=== PATIENT | male | born 1975 | race Hispanic/Latino ===

== ENCOUNTER 2017-11-28 11:58 | Emergency (ER) | payer OTHER ==
[~2017-11-28] VITALS: Ht 170.2 cm; Wt 65.8 kg
--- OUTSIDE RECORDS SUMMARY | ~2017-11-28 | XMS | Clinical Summary ---
Demographics + + + | Address | [address] | | | [place] [address] | + + + | Home Phone | | + + + | Preferred Language | Unknown | + + + | Marital Status | Unknown | + + + | Alevism Affiliation | Unknown | + + + | Race | Unknown | + + + | Ethnic Group | Unknown | + + + Author + + + | Author | [facility] | + + + | Organization | [facility] | + + + | Address | Unknown | + + + | Phone | Unavailable | + + + Care Team Providers + +------+ + | Care Dispatch Officer Name | Role | Phone | + +------+ + PP | Unavailable | + +------+ + Source Comments RENE is fully live on both [facility] and [facility] InPatient.[facility] & [facility] Allergies Not on File Current Medications Not [...]
--- OUTSIDE RECORDS SUMMARY | ~2017-11-28 | XMS | Clinical Summary ---
Demographics + + + | Address | [address] | | | [place] [address] | + + + | Home Phone | | + + + | Preferred Language | Unknown | + + + | Marital Status | Unknown | + + + | Orthodoxy Affiliation | Unknown | + + + | Race | Unknown | + + + | Ethnic Group | Unknown | + + + Author + + + | Author | [facility] | + + + | Organization | [facility] | + + + | Address | Unknown | + + + | Phone | Unavailable | + + + Care Team Providers + +------+ + | Care Distribution Center Administrator Name | Role | Phone | + +------+ + PP | Unavailable | + +------+ + Source Comments RENE is fully live on both [facility] Amb[facility] and [facility] InPatient.[facility] & [facility] Allergies Not on File Current Medications Not [...]
[~2017-11-28 11:58] MED LIST: NORCO 5-325 TA1 EACH PO; PAXIL20 MG PO; TRAZODONE HCL100 MG PO
[2017-11-28] MEDS ORDERED: ROBAXIN-750750 MG PO (19:15)
[2017-11-28] MEDS ORDERED: IBUPROFEN600 MG PO (19:15)
== END 2017-11-28 19:20 | disposition home or self-care (01) ==
LOC: ED 11:58
DX: S39.012A Strain of muscle, fascia and tendon of lower back, initial encounter (principal); M54.6 Pain in thoracic spine; F17.200 Nicotine dependence, unspecified, uncomplicated; F32.9 Major depressive disorder, single episode, unspecified; Z79.899 Other long term (current) drug therapy; W18.30XA Fall on same level, unspecified, initial encounter
CPT/HCPCS: 72070; 72100; 99283

== ENCOUNTER 2017-12-14 02:23 | Emergency (ER) | payer OTHER ==
[~2017-12-14] VITALS: Ht 170.2 cm; Wt 65.8 kg
--- OUTSIDE RECORDS SUMMARY | ~2017-12-14 | XMS | Clinical Summary ---
Demographics + + + | Address | [address] | | | [place] [address] | + + + | Home Phone | | + + + | Preferred Language | Unknown | + + + | Marital Status | Unknown | + + + | Orthodox Affiliation | Unknown | + + + | Race | Unknown | + + + | Ethnic Group | Unknown | + + + Author + + + | Author | [facility] | + + + | Organization | [facility] | + + + | Address | Unknown | + + + | Phone | Unavailable | + + + Care Team Providers + +------+ + | Care Barrel Burner Name | Role | Phone | + +------+ + PP | Unavailable | + +------+ + Source Comments RENE is fully live on both [facility] and [facility] InPatient.[facility] Allergies Not on File Current Medications Not on file Active Problems Not on file Social History + +-------+ +--------+------+ | Tobacco Use | Types | Packs/Day | Years | Date | | | | | Used | | + +-------+ +--------+------+ | Never Assessed | | | | | + +-------+ +--------+------+ + + + | Sex Assigned at | Date Recorded | | | | + + + | Not on file | | + + + Plan of Treatment + + + + + | Health Maintenance | Due Date | Last Done | Comments | + + + + + | INFLUENZA VACCINE | | | | | (FLU SHOT) | 7 | | | + + + + + Results Not on filefrom Last 3 Months"
--- OUTSIDE RECORDS SUMMARY | ~2017-12-14 | XMS | Clinical Summary ---
Demographics + + + | Address | [address] | | | [place] [address] | + + + | Home Phone | | + + + | Preferred Language | Unknown | + + + | Marital Status | Unknown | + + + | Presybeterian Affiliation | Unknown | + + + | Race | Unknown | + + + | Ethnic Group | Unknown | + + + Author + + + | Author | [facility] | + + + | Organization | [facility] | + + + | Address | Unknown | + + + | Phone | Unavailable | + + + Care Team Providers + +------+ + | Care Collection Manager Name | Role | Phone | + +------+ + PP | Unavailable | + +------+ + Source Comments RENE is fully live on both [facility] and [facility] InPatient.[facility] Allergies Not on File Current Medications Not [...]
[~2017-12-14 02:23] MED LIST changes: +IBUPROFEN600 MG PO; +ROBAXIN-750750 MG PO
[2017-12-14] MEDS ORDERED: DICLOFENAC SODI75 MG PO (03:12)
[2017-12-14] MEDS ORDERED: CYCLOBENZAPRINE10 MG PO (03:12)
== END 2017-12-14 03:37 | disposition home or self-care (01) ==
LOC: ED 02:23
DX: S39.012A Strain of muscle, fascia and tendon of lower back, initial encounter (principal); F32.9 Major depressive disorder, single episode, unspecified; F17.200 Nicotine dependence, unspecified, uncomplicated; Z79.899 Other long term (current) drug therapy; X50.9XXA Other and unspecified overexertion or strenuous movements or postures, initial encounter
CPT/HCPCS: 99283

== ENCOUNTER 2018-10-06 17:37 | Emergency (ER) | payer OTHER ==
[~2018-10-06] VITALS: Ht 170.2 cm; Wt 65.8 kg
[~2018-10-06 17:37] MED LIST changes: +CYCLOBENZAPRINE10 MG PO; +DICLOFENAC SODI75 MG PO
[2018-10-06] MEDS ORDERED: PROTONIX20 MG PO (20:50)
[2018-10-06] MEDS ORDERED: ZOFRAN4 MG PO (20:50)
== END 2018-10-06 21:42 | disposition home or self-care (01) ==
LOC: ED 17:37
DX: K52.9 Noninfective gastroenteritis and colitis, unspecified (principal); K92.2 Gastrointestinal hemorrhage, unspecified; F32.9 Major depressive disorder, single episode, unspecified; F17.200 Nicotine dependence, unspecified, uncomplicated
CPT/HCPCS: 80053; 83690; 85025; 96361; 96374; 96375; 99284-25; J2270; J2405; J7030

== ENCOUNTER 2020-03-20 10:25 | Emergency (ER) | payer OTHER, BC ==
[~2020-03-20] VITALS: Ht 170.2 cm; Wt 65.8 kg
[~2020-03-20 10:25] MED LIST changes: +PROTONIX20 MG PO; +ZOFRAN4 MG PO
== END 2020-03-20 11:49 | disposition home or self-care (01) ==
LOC: ED 10:25
DX: S83.91XA Sprain of unspecified site of right knee, initial encounter (principal); S80.11XA Contusion of right lower leg, initial encounter; F32.9 Major depressive disorder, single episode, unspecified; F17.200 Nicotine dependence, unspecified, uncomplicated; W19.XXXA Unspecified fall, initial encounter
CPT/HCPCS: 73590; 99283-25

== ENCOUNTER 2020-10-14 12:44 | Emergency (ER) | payer BC ==
[~2020-10-14] VITALS: Ht 170.2 cm; Wt 59.9 kg
[2020-10-14] MEDS ORDERED: ZOFRAN4 MG PO (15:00)
--- NOTE | 2020-10-14 19:06 | EKG ---
[facility] [address] [place] [address] Signed Sinus bradycardia Minimal voltage criteria for LVH, may be normal variant Borderline ECG No previous ECGs available Confirmed by JARETH SRINIVASAN MD ([id number]) on 10/14/2020 7:06:43 PM Electronically Signed By: JARETH SRINIVASAN MD 10/14/20 1906 PATIENT NAME: OMA WETSON Electrocardiogram DATE OF : 75 PHYSICIAN: JARETH SRINIVASAN MD REPORT #: [id number] REPORT IS CONFIDENTIAL AND NOT TO BE RELEASED WITHOUT AUTHORIZATION
== END 2020-10-14 15:13 | disposition home or self-care (01) ==
LOC: ED 12:44
DX: H69.93 Unspecified Eustachian tube disorder, bilateral (principal); R11.2 Nausea with vomiting, unspecified; F17.200 Nicotine dependence, unspecified, uncomplicated
CPT/HCPCS: 80048; 83735; 85025; 93005; 93010; 96374; 96375; 99284-25; J1100; J2405; J7030

== ENCOUNTER 2021-03-17 09:26 | Emergency (ER) | payer BC ==
[~2021-03-17] VITALS: Ht 170.2 cm; Wt 58.1 kg
== END 2021-03-17 15:19 | disposition home or self-care (01) ==
LOC: ED 09:26
DX: R10.30 Lower abdominal pain, unspecified (principal); E86.0 Dehydration; F17.200 Nicotine dependence, unspecified, uncomplicated
CPT/HCPCS: 74177; 80053; 81001; 83690; 83735; 85025; 96374; 99284-25; J2405; J7030; Q9967

== ENCOUNTER 2023-05-04 09:34 | Emergency (ER) | payer BC ==
[~2023-05-04] VITALS: Ht 170.2 cm; Wt 58.1 kg
[2023-05-04] MEDS ORDERED: ONDANSETRON ODT4 MG PO (12:54)
[2023-05-04] MEDS ORDERED: PANTOPRAZOLE SO40 MG PO (12:54)
[2023-05-04] MEDS ORDERED: DICYCLOMINE HCL10 MG PO (12:54)
[2023-05-04 13:00] VITALS: BP 134/78
--- NOTE | 2023-05-04 14:28 | EKG ---
[facility] [address] [place], [place] [address] Signed Sinus bradycardia Minimal voltage criteria for LVH, may be normal variant ( Sokolow-Caban ) Borderline ECG When compared with ECG of 14-OCT-2020 13:12, No significant change was found Confirmed by RADHA SOLOMON MD ([id number]) on 05/04/2023 2:28:26 PM Electronically Signed By: RADHA SOLOMON 05/04/23 1428 PATIENT NAME: CHAN OMA ESPINAL Electrocardiogram DATE OF : 75 PHYSICIAN: RADHA SOLOMON REPORT #: [id number] REPORT IS CONFIDENTIAL AND NOT TO BE RELEASED WITHOUT AUTHORIZATION
== END 2023-05-04 13:01 | disposition home or self-care (01) ==
LOC: ED 09:34
DX: K52.9 Noninfective gastroenteritis and colitis, unspecified (principal); E86.0 Dehydration; F17.200 Nicotine dependence, unspecified, uncomplicated
CPT/HCPCS: 36415; 80053; 81003; 83690; 85025; 93005; 93010; 96374; 96375; 99284 25; C9113; J2270; J2405; J7030

== ENCOUNTER 2023-10-28 09:46 | Emergency (ER) | payer BC ==
[~2023-10-28] VITALS: Ht 170.2 cm; Wt 60.0 kg
[~2023-10-28 09:46] MED LIST changes: +DICYCLOMINE HCL10 MG PO; +ONDANSETRON ODT4 MG PO; +PANTOPRAZOLE SO40 MG PO
[2023-10-28 10:33] LABS: BASOPHILS 0.5 % (0-2); HEMATOCRIT 39.3 % (35.0-50.0); HEMOGLOBIN 13.6 g/dL (12.0-18.0); LYMPHOCYTES 20.8 % (24-44); MCH 33.5 (27-36); MCHC 34.6 g/dl (30-36); MCV 96.9 fl (81-99); MONOCYTES 6.1 % (0-12); NEUTROPHILS 71.6 % (39-80); RBC 4.06 M/ul (4.3-5.7); RDW 12.8 (10.5-15.0)
[2023-10-28 10:49] LABS: ALBUMIN 3.7 g/dL (3.4-5.0); ALBUMIN/GLOBULIN RATIO 1.16 (1.1-2.4); ALKALINE PHOSPHATASE 85 U/L (46-116); ALT (SGPT) 24 U/L (14-59); ANION GAP 12.7 (7-21); AST (SGOT) 18 U/L (15-37); BILIRUBIN, TOTAL 0.4 ng/dL (0.2-1.0); BUN/CREATININE RATIO 13.58 (6.0-28.6); CALCIUM 8.8 mg/dL (8.5-10.1); CARBON DIOXIDE 28 mmol/L (21-32); CHLORIDE 106 mmol/L (98-107); CREATININE, SERUM 0.81 mg/dL (0.70-1.30); GLOMERULAR FILTRATION RATE,EST 109 mL/min (>60); POTASSIUM 3.7 mmol/L (3.5-5.1); PROTEIN, TOTAL 6.9 g/dL (6.4-8.2); TSH, 3RD GENERATION 1.169 uIU/mL (0.358-3.740); UREA NITROGEN 11 mg/dL (7-18)
[2023-10-28 10:53] LABS: PLATELET COUNT 145 K/uL (140-440)
[2023-10-28 11:26] VITALS: BP 105/77
--- NOTE | 2023-10-29 09:15 | EKG ---
[facility] [address] [place] [address] Signed Sinus bradycardia Otherwise normal ECG When compared with ECG of 04-MAY-2023 10:54, T wave amplitude has decreased in Lateral leads Confirmed by RADHA SOLOMON MD ([id number]) on 10/29/2023 9:15:36 AM Electronically Signed By: RADHA SOLOMON 10/29/23 0915 PATIENT NAME: ROCIO ESPINALOMA Electrocardiogram DATE OF : 75 PHYSICIAN: RADHA SOLOMON REPORT #: [id number] REPORT IS CONFIDENTIAL AND NOT TO BE RELEASED WITHOUT AUTHORIZATION
== END 2023-10-28 11:26 | disposition home or self-care (01) ==
LOC: ED 09:46
PROVIDERS: Emergency Medicine
DX: R00.1 Bradycardia, unspecified (principal); F17.200 Nicotine dependence, unspecified, uncomplicated
CPT/HCPCS: 36415; 80053; 84443; 84484; 85025; 85060; 93005; 93010; 99284-25

== ENCOUNTER 2025-01-18 12:40 | Emergency (ER) | payer SELFPAY ==
[~2025-01-18] VITALS: Ht 170.2 cm; Wt 61.6 kg
[2025-01-18] MEDS ORDERED: ESCITALOPRAM OX10 MG PO (14:07)
[2025-01-18] MEDS ORDERED: MULTIVITAMINS 10 ML,FOLIC ACID 1 MG,THIAMINE HCL 100 MG in SODIUM CHLORIDE 0.9% 1,000 ML IV ONE (14:15)
[2025-01-18] MEDS ORDERED: ondansetron HCL 4 MG/2 ML VIAL IV ONE (14:15)
[2025-01-18] MEDS ORDERED: SODIUM CHLORIDE 0.9% 1,000 ML IV ONE (14:15)
[2025-01-18] MEDS ORDERED: SODIUM CHLORIDE 0.9% 1,000 ML IV PRN (14:30)
[2025-01-18] MEDS ORDERED: MULTIVITAMINS THERAPEUTIC 1 EA TAB PO ONE (14:30)
[2025-01-18] MEDS ORDERED: THIAMINE HCL 200 MG/2 ML VIAL IV ONE (14:30)
[2025-01-18] MEDS ORDERED: FOLIC ACID 1 MG/0.2 ML ML IV ONE (14:30)
[2025-01-18 14:43] LABS: ALBUMIN 4.4 g/dL (3.4-5.0); ALBUMIN/GLOBULIN RATIO 1.16 (1.1-2.4); ANION GAP 13.4 (7-21); BILIRUBIN, TOTAL 0.9 mg/dL (0.2-1.0); BUN/CREATININE RATIO 10.63 (6.0-28.6); CALCIUM 9.2 mg/dL (8.5-10.1); CREATININE, SERUM 0.94 mg/dL (0.70-1.30); POTASSIUM 3.4 mmol/L (3.5-5.1); PROTEIN, TOTAL 8.2 g/dL (6.4-8.2)
[2025-01-18 15:09] LABS: BASOPHILS 0.3 % (0-2); EOSINOPHILS 0.1 % (0-6); HEMATOCRIT 43.2 % (35.0-50.0); HEMOGLOBIN 15.1 g/dL (12.0-18.0); LYMPHOCYTES 8.4 % (24-44); MCH 32.9 (27-36); MCHC 34.9 g/dl (30-36); MCV 94.5 fl (81-99); NEUTROPHILS 85.2 % (39-80); PLATELET COUNT 146 K/uL (140-440); RBC 4.58 M/ul (4.3-5.7); RDW 13.2 (10.5-15.0)
[2025-01-18 15:24] LABS: CORONAVIRUS COVID-19 AG NEGATIVE (NEGATIVE); INFLUENZA A AG NEGATIVE (NEGATIVE); INFLUENZA B AG NEGATIVE (NEGATIVE)
[2025-01-18] MEDS ORDERED: ONDANSETRON ODT8 MG PO (15:40)
[2025-01-18 15:50] VITALS: BP 152/70
== END 2025-01-18 15:50 | disposition home or self-care (01) ==
LOC: ED 12:40
PROVIDERS: Emergency Medicine
DX: K52.9 Noninfective gastroenteritis and colitis, unspecified (principal); F17.200 Nicotine dependence, unspecified, uncomplicated; Z79.899 Other long term (current) drug therapy
CPT/HCPCS: 36415; 80053; 83690; 85025; 85060; 96374; 96375; 99284-25; J2405; J3411; J7030